=== PATIENT | male | born 1950 | race Caucasian/White ===

== ENCOUNTER 2017-11-11 21:10 | Emergency (ER) | payer OTHER ==
--- NOTE | 2017-11-11 22:50 | ED ---
Lower Extremity - HPI Summary HPI Summary: This is scribe Ezekiel Nixonsain documenting for attending Dr. Elyse Grider MD. A 67 y/o male MARCELLE presents to ED c/o leg pain. According to the patient, both of his legs are in pain reaching 5/10 in severity. The right leg pain started two days ago (11/09/2017) which isn't as painful as his left leg which started 4 days ago (11/07/2017). He stated, "they hurt like hell" and that he could not get out of the taxi. For the past 4 days (since 11/07/2017), the patient has been trying to straighten his legs out. He noted that he went to the [facility] four times before coming to [facility], however they weren't able to help as they said he was fine. He thinks he is not well, "I don't think being in this much pain is considered well". Additionally he noted that originally the staff at [facility] stated he had broken bones, but the next day they stated they he did not. The patient denies any fall, however he noted that he hit some water which led him to lift and twist his left leg. He stated that he did a "Kahuna/ had a Kahuna moment". Post-accident, he had no pain as everything settled, but the next pain brought on the onset of pain. He has no clue as to why his right is in pain. He noted that Dr. Elyse Grider was the first physician to exam/ touch his leg. As per triage, "Pt was just seen at [facility] today for Flo leg pain, Discharge with leg brace to L. Pt comes in via EMS stating it still hurts him. Pt is on baseline pain meds already. EMS stated that patient may need a SW consult as he has been coming into ER's for the past few days for the same complaints". The patient has several bruises and abrasions throughout the body, please see PE. PMHx of Nephrectomy, Appendectomy, breast reduction and Testicular reconstruction. FHx of cancer and CVA (grandfather and mother). SHx of lives alone in an apartment in [place], [place]. He use to live in a house but his brother kicked him out. To get home, the patient will take a [employer] taxi. Patient is HIV positive and is on antiretroviral medication. 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 PCP is Dr. Jodee Doe. No known allergies. Pt states he has "multiple personalities come out and that different personalities coming out are why he has bruises." Pt lives in [facility] and his PCP, Dr. Smallwood, gives him oxycodone - History of Current Complaint Chief Complaint: EDExtremityLower Stated Complaint: LEG PAIN Time Seen by Provider: 11/11/17 22:00 Hx Obtained From: Patient Mechanism Of Injury: Twisted Onset of Pain: Post Accident Onset/Duration: Days Severity Initially: Moderate Severity Currently: Severe Pain Intensity: 5 Pain Scale Used: 0-10 Numeric Timing: Constant Location: Is Discrete @ - bilateral knees, left worse than right Character Of Pain: Aching Associated Signs And Symptoms: Positive: Swelling, Redness - minimal left knee, Bruising - bilat knees and throughout body Aggravating Factor(s): Standing, Ambulation, Movement, Weight Bearing Alleviating Factor(s): Nothing Able to Bear Weight: Yes - Allergies/Home Medications Allergies/Adverse Reactions: Allergies Allergy/AdvReac Type Severity Reaction Status Date / Time amitriptyline [From Elavil] Allergy Unknown Unknown Verified 11/12/17 00:49 Reaction Details dicyclomine Allergy Unknown Unknown Verified 11/12/17 00:49 Reaction Details PMH/Surg Hx/FS Hx/Imm Hx Previously Healthy: No - Klinefelter's, HIV positive Endocrine/Hematology History: Reports: Hx Anticoagulant Therapy Denies: Hx Diabetes Cardiovascular History: Reports: Hx Hypertension Denies: Hx Pacemaker/ICD Respiratory History: Denies: Hx Asthma History: Reports: Hx Acute Renal Failure, Hx Renal Disease Denies: Hx Dialysis Sensory History: Denies: Hx Hearing Aid Neurological History: Reports: Hx Migraine, Hx Seizures Psychiatric History: Reports: Hx Panic Disorder - Surgical History Surgery Procedure, Year, and Place: 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 - Social History Alcohol Use: unable to determine Substance Use Type: Reports: Marijuana Substance Use Comment - Amount & Last Used: 3 weeks Hx Tobacco Use: Yes Smoking Status (MU): Current Some Day Smoker Type: Cigars Review of Systems Negative: Fever Cardiovascular: Negative Respiratory: Negative Gastrointestinal: Negative Positive: Other - POSITIVE: knee pain, bilateral, left worse than right Positive: Bruising - large bruises multiple ages, throughout boday Neurological: Negative Psychological: Normal All Other Systems Reviewed And Are Negative: Yes Physical Exam - Summary Physical Exam Summary: Appearance: chronically ill appearing, moderate to severe pain distress, tall, thin Skin: Warm, color reflects adequate perfusion, dry, bilat knees bruised Head: Normal Head/Face inspection, atraumatic Eyes: Conjunctiva clear ENT: Normal inspection Neck: Supple, no nodes, no JVD Respiratory: Lungs clear, normal breath sounds, no respiratory distress, scars on breasts from breast reduction, inverted nipples bilat Cardio: RRR, No murmur, pulses normal, brisk capillary refill Abdomen: Soft, nontender Bowel sounds: Present Musculoskeletal:, no calf tenderness, no edema. bilat knees bruised, 4 cm abrasion lateral tibia with minimal redness, pt can lift left leg in the air, but only with difficulty. Prefers sitting with knees bent on stretcher. Psychological: Normal Neuro: Alert, muscle tone normal, no focal deficit additional skin findings and musculoskeletal findings: Left knee is bruised 4 abrasion on the lateral tib.. Can't lift left leg easily in air and straight and up Patient takes time straightening left leg and it hurts can fully extend knee and lift leg off stretcher Left knee is very swollen, deformed and "hurts like hell" Right leg is easier to lift Redness on left leg 5 cm in diameter purple ecchymosis on left posterior shoulder 2 cm mid upper spine purple green ecchymosis 19 cm by 10 cm left flank (note RN states "minor bruising" on back, but these measurements are large). all ecchymoses are purple and green and appear subacute 5 cm ecchymosis, inferior to left flank 7cm dark red ecchymosis right dorsal forearm 7cm purple ecchymosis on his left medial ankle notes re: physical exam: Large bruise on back "slammed in [facility]" this afternoon (Dr. Grider states looks a day or two old) "slamming into chair .."stood up on crazy thing and you took off"..[facility] said "walk on it" Triage Information Reviewed: Yes Vital Signs On Initial Exam: Initial Vitals Temp Pulse Resp BP Pulse Ox 98.1 F 100 16 123/77 99 11/11/17 21:15 11/11/17 21:15 11/11/17 21:15 11/11/17 21:15 11/11/17 21:15 Vital Signs Reviewed: Yes Diagnostics - Vital Signs Vital Signs Temp Pulse Resp BP Pulse Ox 11/11/17 21:15 98.1 F 100 16 123/77 99 - Laboratory Result Diagrams: 11/11/17 23:12 11/11/17 23:12 Lab Statement: Any lab studies that have been ordered have been reviewed, and results considered in the medical decision making process. Re-Evaluation - Re-Evaluation First Eval Re-Evaluation Time: 00:20 Change: Unchanged Comment: discussed possible patella fracture Lower Extremity Course/Dx - Course Course Of Treatment: 67 yo M with hx Klinefelter's syndrome and HIV on antiretrovirals presents to [facility] after multiple visits to [facility] where he is from per EMS for left leg pain. Pt arrives wearing a knee immobilizer incorrectly on his lower left leg around his calf, not covering his knee at all. Xray unofficial reading by Dr. Grider shows possible patella fracture, although on discussion with Dr. Morgan, pt's function does not support patella fracture as pt is able to bend his knee and lift his leg off the stretcher and also pt does not describe real trauma, only a "kahuna" twisting move that caused his pain. Pt does not give a plausible answer as to why he has so many large ecchymoses on his extremities and back, other than "multiple personalities ", however CBC has normal values for wbc and platelets. Pt is DC'd with a [facility] knee immobilizer properly placed, and crutches with non weight bearing and is advised to see Dr. Morgan in 1-2 days. - Diagnoses Differential Diagnosis/HQI/PQRI: Positive: Contusion, Fracture (Closed), Puncture Wound, Sprain, Strain Provider Diagnoses: Patellar sleeve fracture of left knee, Traumatic ecchymosis of multiple sites, HIV (human immunodeficiency virus infection) - Physician Notifications Discussed Care Of Patient With: Salvador Morgan Time Discussed With Above Provider: 11:35 Instructed by Provider To: Have Pt Call For Appt. Discharge - Sign-Out/Discharge Documenting (check all that apply): Patient Departure - home - Discharge Plan Condition: Stable Disposition: HOME Patient Education Materials: Patellar Fracture (ED) Referrals: Jodee Doe MD [Primary Care Provider] - Salvador Morgan MD [Medical Doctor] - 1 Day Additional Instructions: Dr. Grider thinks you may have a fractured patella (knee cap). Have definite follow up with Dr. Morgan in 1-2 days. Use the crutches without bearing weight. Keep the knee immobilizer in place until you are seen by Dr. Morgan. Elevate the leg, use ice. Your blood tests today did not show any significant abnormalities. Return to the ER if you have any new or worsening symptoms. - Billing Disposition and Condition Condition: STABLE Disposition: Home
[2017-11-11 23:21] LABS: ABS Basophils 0 10^3/ul (0-0.2); ABS Eosinophils 0.2 10^3/ul (0-0.6); ABS Lymphocytes 1.7 10^3/ul (1.0-4.8); ABS Neutrophils 6.2 10^3/ul (1.5-7.7); ABS Nucleated RBC 0 10^3/ul; Eosinophil % 2.1 % (0-6); Hematocrit 35 % (42-52); Hemoglobin 12.7 g/dl (14.0-18.0); Lymphocyte % 18.9 % (25-47); Mean Corpuscular HGB Conc 36 g/dl (31-36); Mean Corpuscular Hemoglobin 38 pg (27-31); Mean Corpuscular Volume 105 fL (80-94); Mean Platelet Volume 7.4 um3 (7.4-10.4); Nucleated Red Blood Cells % 0; Platelet Count 237 10^3/ul (150-450); Red Blood Count 3.34 10^6/ul (4.00-5.40); Red Cell Distribution Width 13 % (10.5-15); White Blood Count 9.2 10^3/ul (3.5-10.8)
[2017-11-11 23:31] LABS: INR 0.95 (0.77-1.02)
[2017-11-11 23:39] LABS: EGFR Non-African American 109.6 (>60)
[2017-11-11 23:53] LABS: Urine Appearance Clear; Urine Blood Negative (Negative); Urine Color Yellow; Urine Ketones Negative (Negative); Urine Protein Negative (Negative); Urine Specific Gravity 1.017 (1.010-1.030); Urine Urobilinogen Negative (Negative)
[2017-11-12 01:35] VITALS: BP 167/87
--- NOTE | 2017-11-12 08:21 | RAD ---
HISTORY: pain, twisting injury 4 days ago, "can't walk" COMPARISONS: None VIEWS: 5, Frontal, lateral, axial, and oblique views of the left knee FINDINGS: BONE DENSITY: There is diffuse osteopenia. BONES: There is a longitudinally oriented fracture of the patella, centered lateral to the midline. There is no displacement. JOINTS: There is no arthropathy. ALIGNMENT: There is no dislocation. SOFT TISSUES: Unremarkable. OTHER FINDINGS: None. IMPRESSION: NONDISPLACED FRACTURE OF THE PATELLA. OSTEOPENIA.. R0
== END 2017-11-12 01:43 | disposition home or self-care (01) ==
LOC: ED 21:10
DX: S82.025A Nondisplaced longitudinal fracture of left patella, initial encounter for closed fracture (principal); S80.02XA Contusion of left knee, initial encounter; S80.01XA Contusion of right knee, initial encounter; S40.012A Contusion of left shoulder, initial encounter; S20.229A Contusion of unspecified back wall of thorax, initial encounter; S50.11XA Contusion of right forearm, initial encounter; S90.02XA Contusion of left ankle, initial encounter; X50.1XXA Overexertion from prolonged static or awkward postures, initial encounter; S80.812A Abrasion, left lower leg, initial encounter; Y93.9 Activity, unspecified; Y92.9 Unspecified place or not applicable; M85.862 Other specified disorders of bone density and structure, left lower leg; Q98.4 Klinefelter syndrome, unspecified; Z21 Asymptomatic human immunodeficiency virus [HIV] infection status; Z79.01 Long term (current) use of anticoagulants; N17.9 Acute kidney failure, unspecified; G43.909 Migraine, unspecified, not intractable, without status migrainosus; R56.9 Unspecified convulsions; F41.0 Panic disorder [episodic paroxysmal anxiety]; Z88.8 Allergy status to other drugs, medicaments and biological substances; Z80.9 Family history of malignant neoplasm, unspecified; Z82.3 Family history of stroke; Z72.0 Tobacco use
CPT/HCPCS: 36415; 80053; 81003; 83605; 83735; 85025; 85610; 86140; 99284

== ENCOUNTER 2017-11-12 15:39 | Emergency (ER) | payer OTHER ==
[2017-11-12] MEDS ORDERED: Ketorolac INJ* 30 MG/ML 1 ML VIAL IM ONE (16:51)
--- NOTE | 2017-11-12 17:00 | ED ---
Lower Extremity - HPI Summary HPI Summary: Pt here c/o pain since patellar fx dx'd yesterday. Has been wearing immobilizer but not in appropriate place (straps area over patella - should have open area over patella). Has also been bearing weight at times which is painful - states he was not educated about crutch use - has no UE pain or weakness prohibiting this action - just awkward for him. Has not been taking NSAID's or using ice has been elevating. He reports he has 1 kidney but it functions well - labs from yesterday confirm this. He also report h/o GI ulcer 5 years ago but no pain or hematochezia since - H&H stable yesterday. Pt has been eating at home w/ o pain or difficulty. After conversation about adequate injury care, asked if he has called to schedule an appointment yet with orthopedics. He reports he was tied up yesterday with his special education case manager, Darlene Diaz, who was concerned about his living conditions. We received no call from her and when I attempted to contact her, there was no answer. Pt reports he came via [facility]. He reports he feels safe at home and denies SI/HI. Feels he is able to care for himself (ie toileting, etc) and has fall alert cords in his home is he needs assistance. He prefers to stay at home. - History of Current Complaint Chief Complaint: EDExtremityLower Stated Complaint: LT LEG PAIN Time Seen by Provider: 11/12/17 15:50 Hx Obtained From: Patient Pain Intensity: 8 - Allergies/Home Medications Allergies/Adverse Reactions: Allergies Allergy/AdvReac Type Severity Reaction Status Date / Time amitriptyline [From Elavil] Allergy Unknown Unknown Verified 11/12/17 00:49 Reaction Details dicyclomine Allergy Unknown Unknown Verified 11/12/17 00:49 Reaction Details PMH/Surg Hx/FS Hx/Imm Hx Previously Healthy: Yes Endocrine/Hematology History: Reports: Hx Anticoagulant Therapy Denies: Hx Diabetes Cardiovascular History: Reports: Hx Hypertension Denies: Hx Pacemaker/ICD Respiratory History: Denies: Hx Asthma History: Reports: Hx Acute Renal Failure, Hx Renal Disease Denies: Hx Dialysis Sensory History: Denies: Hx Hearing Aid Neurological History: Reports: Hx Migraine, Hx Seizures Psychiatric History: Reports: Hx Panic Disorder - Surgical History Surgery Procedure, Year, and Place: 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 - Social History Occupation: Unemployed Lives: Alone Alcohol Use: unable to determine Substance Use Type: Reports: Marijuana Substance Use Comment - Amount & Last Used: 3 weeks Hx Tobacco Use: Yes Smoking Status (MU): Current Some Day Smoker Type: Cigars Review of Systems Constitutional: Negative Negative: Fever, Chills, Fatigue Negative: Blurred Vision Negative: Chest Pain Negative: Shortness Of Breath Gastrointestinal: Negative Positive: no symptoms reported Positive: Arthralgia, Myalgia, Decreased ROM, Edema Neurological: Negative Psychological: Normal All Other Systems Reviewed And Are Negative: Yes Physical Exam Triage Information Reviewed: Yes Vital Signs On Initial Exam: Initial Vitals Temp Pulse Resp BP Pulse Ox 98 F 78 16 137/79 97 11/12/17 16:16 11/12/17 16:16 11/12/17 16:16 11/12/17 16:16 11/12/17 16:16 Vital Signs Reviewed: Yes Appearance: Positive: Pain Distress - mild - sitting in chair with knee immobilizer placed too low, pressing onto patella, Thin - generalized pallor and very thin but is able to transition and ambulate without assistance Skin: Positive: Warm, Skin Color Reflects Adequate Perfusion, Dry Head/Face: Positive: Normal Head/Face Inspection Eyes: Positive: EOMI ENT: Positive: Hearing grossly normal, Pharynx normal - mucosa moist - no lesions, no sores Neck: Positive: Nontender Respiratory/Lung Sounds: Positive: Breath Sounds Present Cardiovascular: Positive: Pulses are Symmetrical in both Upper and Lower Extremities, Other - knee w/ warmth and mild edema. Negative: Leg Edema Left, Leg Edema Right Musculoskeletal: Positive: Limited @ - Pt's LE in knee immobilizer - made all efforts to avoid flexing knee while adjusting knee immobilizer as pt has known patellar fx - can move ankle, toes and hip w/o pain, restriction Neurological: Positive: Normal, Sensory/Motor Intact, Alert, Oriented to Person Place, Time, CN Intact II-III Psychiatric: Positive: Normal - denies SI/HI Diagnostics - Vital Signs Vital Signs Temp Pulse Resp BP Pulse Ox 11/12/17 16:16 98 F 78 16 137/79 97 - Laboratory Lab Statement: Any lab studies that have been ordered have been reviewed, and results considered in the medical decision making process. Lower Extremity Course/Dx - Course Course Of Treatment: Darlene Diaz, Steak Tenderizer Machine, did call ED after pt was here. Voices concerns about repeat visits to [facility] and finally our ED. He was dx 'd yesterday with a patellar fracture and an immobilizer was placed. Patient was also given crutches. Patient admits he is not 100% sure how to use them today however he was observed using them effectively to take himself back and forth from the bathroom. He also received additional education from nursing and feels more confident with using his crutches. Offered to have him practice with nursing but he states he feels comfortable enough to get around at home. His knee immobilizer was also placed incorrectly when he arrived so this was put on correctly and he was educated about how to reapply this appropriately. Voices understanding. Darlene's additional concerns were that the patient is having a difficult time navigating his home with his crutches as he moved to a new apartment in May and has not unpacked any of his boxes yet (ie. home is cluttered with minimal space for walking). He does have fall alert cords in his home which he is able to utilize if he falls. Social work was also consulted (Anna) and she put in a referral for visiting nurses to see the patient in the morning to assess his living situation. Does not believe he's a candidate for admission here at this time. It is recommended that he have assistance with organizing his apartment to reduce his fall risk as well as meal planning assistance and any other care he may need (ie. counseling, weight management, strength and conditioning, etc). Patient states he will call the retirement plan specialist tomorrow to schedule his follow-up appointment and he understands this is important for his healing process. We also discussed that he may be a candidate for physical therapy either for his knee injury and/or general strength and conditioning. Again, visiting nurses will assess patient for these conditions. In regards to his thriving ability, patient denies SI, HI , reports he feels safe at home and that he has been eating without difficulty. His vital signs are stable and his labs yesterday do not indicate malnutrition although he does appear thin for height and age. He is HIV positive and Darlene states he is followed by the [facility]. She reports his labs are within normal limits and he does not report any concerns about poor care/compliance in this area either. He may benefit from closer observation regarding his muscle wasting if this is what happening. Again, he is able to ambulate without wavering here today. Jodee - after speaking with disc pad knockout worker Anna, returned call to Jodee the on-call body care manager. She is aware plan for patient to return home tonight with better crutch education, visibly observed managing his crutches in an effective fashion, given food and advised him on better pain management through NSAID's. Jodee and patient are both aware that visiting nurse will be coming to assess patient tomorrow however encouraged Jodee and/or Darlene to follow-up with this as well as he will most likely need a team approach to his care. Speaking with Darlene earlier, she said patient has been referred to psychology but has not been established for counseling yet. Sounds like he may benefit from this as his home not being organized is due to depression, not physical weakness although this may be a limiting factor with recent injury. Encouraged patient to return to the emergency department if he develops any danger signs or symptoms. Patient voices understanding and agrees with plan. NOTE: pt ate while here w/o difficulty - Diagnoses Provider Diagnoses: Patellar fracture, Social problem Discharge - Sign-Out/Discharge Documenting (check all that apply): Patient Departure - Discharge Plan Condition: Stable Disposition: HOME Patient Education Materials: Crutch Instructions (ED), Patellar Fracture (ED), Knee Immobilizer (ED) Referrals: Salvador Morgan MD [Medical Doctor] - Additional Instructions: REST, ICE, ELEVATE AND KEEP KNEE IMMOBILIZER IN PLACE UNTIL SEEN BY ORTHOPEDICS. Avoid weight bearing by using crutches. You may take aleve every 12 hours with food alternating with acetaminophen 650mg every 6 hours as needed for pain Call orthopedics tomorrow to schedule follow-up. Dr. Morgan's contact information is included here. *If you develop numbness, tingling, weakness, swelling or skin discoloration, loosen knee immobilizer and elevate leg for 20 minutes. If symptoms persist, return to ED In regards to difficulty at home, visiting nurse will be consulting tomorrow. Please also make sure to follow-up with Dralene Ellsworth. You have been provided with some food tonight however if this remains an issues, you may need assistance with grocery shopping and/or food prep. This may be done by home services or meals on wheels delivery. Additionally, you are having difficulty navigating your home due to organizational issues - your body care manager may assist with unpacking and organizing your space to reduce fall risk. Furthermore , it has been mentioned that your strength is less than it could be - for this you may benefit from physical therapy for general strength and conditioning - please inquire with visiting nurse services. - Billing Disposition and Condition Condition: STABLE Disposition: Home
[2017-11-12 18:40] VITALS: BP 130/74
== END 2017-11-12 18:40 | disposition home or self-care (01) ==
LOC: ED 15:39
DX: S82.002A Unspecified fracture of left patella, initial encounter for closed fracture (principal); X58.XXXA Exposure to other specified factors, initial encounter; Y92.9 Unspecified place or not applicable; F17.290 Nicotine dependence, other tobacco product, uncomplicated; Z88.8 Allergy status to other drugs, medicaments and biological substances; Z90.5 Acquired absence of kidney
CPT/HCPCS: 96372; 99282; J1885